=== PATIENT | male | born 1980 ===

== ENCOUNTER 2023-07-03 14:38 | Emergency (ER) | payer OTHER, SELFPAY ==
[2023-07-03 15:20] VITALS: BP 134/89; PULSE 118; RESP 18; TEMP 37.1; O2SAT 99; BMI 31.8
--- NOTE | 2023-07-03 15:20 | ED_ITS ---
HPI - General Adult General Chief complaint: Upper Respiratory Symptoms Stated complaint: Flu symptoms Time Seen by Provider: 07/03/23 16:20 Source: patient, RN notes reviewed, old records reviewed and patient safety attendant (syriac) Mode of arrival: ambulatory Limitations: language barrier History of Present Illness HPI narrative: 43 year old male presents to the ED today for evaluation of dry cough, congestion, subjective fevers, body aches, and diarrhea x3 days. He admits symptoms began after visiting his family at the hospital. His at home is ill with the same symptoms. He has been taking Tylenol at home. His last dose was last night. He did not receive his influenza vaccine this year. Denies sore throat, ear pain, sputum production, chest pain, SOB, wheezing, dyspnea, LE pain/swelling, hemoptysis, N/V/ abd pain. Denies recent travel or long car rides. 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 Related Data Home Medications Medication Instructions Recorded Confirmed aspirin 81 mg tablet,delayed 81 mg PO DAILY 11/03/21 release blood glucose control high and low #1 ea 11/03/21 solution (FreeStyle Control solution) blood sugar diagnostic (FreeStyle #10 ea 11/03/21 Lite Strips) blood-glucose meter (FreeStyle #1 ea 11/03/21 [place] Lite kit) glipizide 5 mg tablet 5 mg PO BID 11/03/21 insulin glargine 100 unit/mL (3 unit subcut 11/03/21 mL) subcutaneous pen (Lantus Solostar U-100 Insulin) lancets 28 gauge (FreeStyle #100 ea 11/03/21 Lancets) lisinopril 5 mg tablet 5 mg PO DAILY 11/03/21 metformin 1,000 mg tablet 1,000 mg PO BID 11/03/21 pen needle, diabetic 32 gauge x #50 ea 11/03/21 (BD Nubia 2nd Gen Pen Needle) simvastatin 40 mg tablet 40 mg PO BEDTIME 11/03/21 Previous Rx's Medication Instructions Recorded benzonatate 100 mg capsule 100 mg PO BID PRN cough #20 caps 07/03/23 oseltamivir 75 mg capsule (Tamiflu) 75 mg PO BID 5 days #10 caps 07/03/23 Allergies Allergy/AdvReac Type Severity Reaction Status Date / Time No Known Allergies Allergy Verified 07/03/23 15:20 Review of Systems Review of Systems: Constitutional: No fever, chills, fatigue, night sweats, weight changes ENT/Mouth: No ear pain, hearing loss, sinus pain, rhinorrhea, sore throat, +congestion Eyes: No eye pain, swelling, redness, vision changes, discharge Cardio: No chest pain, palpitations, [place], orthopnea, peripheral edema Pulm: No SOB, sputum, wheezing, dyspnea, hemoptysis, +cough GI: No nausea, vomiting, hematemesis, abdominal pain, constipation, hematochezia, melena, +diarrhea : No irregular bleeding, dysuria, frequency, urgency, hesitancy, hematuria, flank pain, urinary flow changes, urinary incontinence or retention MSK: No back pain, neck pain, joint pain, +myalgias Skin: No lesions, rashes Neuro: No weakness, numbness, paresthesias, LOC, dizziness, headache Psych: No anxiety/panic, depression, SI/HI, AH/VH All other systems reviewed and are negative. [facility] Past Medical History Attestation statement: The following information was validated with the patient. Source: old records reviewed and nursing notes reviewed Social History Social History Advance Directives: No Advance Directives Information Provided: No Physical Exam ED Vital Signs: Vital Signs - 24 hr 07/03/23 15:20 07/03/23 16:34 Temperature 98.8 F 98.8 F Pulse Rate 118 H 118 H Respiratory Rate 18 18 Blood Pressure 134/89 134/89 Pulse Oximetry 99 99 Oxygen Delivery Method Room Air Room Air BMI result Body Mass Index 31.8 Const General: cooperative, healthy appearing, comfortable and no acute distress Orientation/consciousness: patient oriented x3 Limitations: no limitations HENMT Other: + Posterior oropharynx without erythema or edema. no tonsillar swelling or exudates. no peritonsillar masses. uvula midline. controlling secretions and speaking in complete sentences. Head: Yes normal to inspection, Yes No palpable skull fracture present, Yes normocephalic and Yes atraumatic Ears: hearing grossly normal bilaterally, external ears normal, TM normal on the left, EAC's normal and mastoids normal General nose exam: Normal external nose present and No nasal discharge present Face and sinus: Yes normal facial exam and Yes sinuses nontender Eyes General: appearance normal, both eyes and all related structures Conjunctivae: conjunctivae normal Sclerae: sclerae normal Pupils: Equal, round and reactive pupils present Neck Neck: Yes normal visual inspection, Yes full ROM and Yes no lymphadenopathy Resp Effort & Inspection: normal respiratory effort and able to speak in complete sentences Auscultation: clear to auscultation bilaterally Cardio Rate: regular rate Rhythm: regular rhythm GI Inspection: Yes normal to inspection Palpation (GI): Soft to palpation, nontender and no splenomegaly Skin General skin exam: no rashes or lesions noted Neuro General: patient oriented x3 and gait normal Cranial nerves: Yes Equal, round and reactive pupils present Course Course Course Narrative: RME:?43 yo male here for eval of cough, congestion, fever, body aches, diarrhea x3 days after visiting his family at the hospital. his has the same sympt oms. taking tylenol at home, last dose last night. did not get flu vaccine this year. viral serology ordered. Full HPI, ROS and PE to be performed by the primary ED provider. Reevaluation(s) Reevaluation #1: 1632-- patient tested positive for influenza A. He tested negative for COVID and RSV. Discussed all workup results with patient. Tamiflu and Tessalon Perles sent to pharmacy after discussion with patient regarding treatment options. Patient has remained stable throughout ED visit today. Discussed worrisome signs and symptoms and when to return to the ED. All questions answered at this time. Patient is agreeable with disposition and stable for discharge. Medical Decision Making Medical Decision Making [facility] Narrative: 43 year old male presents to the ED today for evaluation of dry cough, congestion, fever, body aches, and diarrhea x3 days. Patient is tachycardic likely secondary to viral infection. Vitals otherwise wnl. Afebrile. He is nontoxic appearing and in NAD. B/l EACs and TMs wnl. Posterior oropharynx without erythema or edema. no tonsillar swelling or exudates. no peritonsillar masses. uvula midline. controlling secretions and speaking in complete sentences. RRR. Lungs CTA b/l. No wheezes, rhonchi or crackles. No rashes. Abd soft, ND/NT. Differential diagnosis includes viral syndrome, bronchitis. Low suspicion for pneumonia, strep throat, mono, [employer], retropharyngeal abscess, epiglottitis. Plan for viral serology and re-evaluation. Differential Diagnosis Differential Diagnoses: The differential diagnosis associated with the pres entation includes as above. Admission/Observation not indicated Lab Data MDM Lab Attestation statement: I reviewed the patient's lab results. as above. Labs: Lab Results 07/03/23 Range/Units 15:33 Influenza Type A (PCR) POSITIVE A (Negative) Influenza Type B (PCR) NEGATIVE (Negative) RSV RNA Qual (PCR) NEGATIVE (Negative) SARS-CoV-2 RNA (RT-PCR) NEGATIVE (Negative) Independent Historian Clinical information obtained from an independent historian. History obtained from or confirmed by: Spouse () External Record Review External record reviewed: Inpatient record Tests considered The following testing was considered but not selected: I considered obtaining CXR however lungs are CTA b/l and there is no increased effort of breathing. low suspicion for pneumonia. Prescription Management I considered prescription management with: Antiviral (tamiflu) and Other (tessalon perles) Social Determinants Patient?s care significantly limited by Social Determinants of Health including: Other Social Determinant of Health Discharge Plan Discharge Clinical Impression: Influenza A Patient Disposition: Home, Self-Care Instructions: Influenza (ED), Flu Shot (Vaccine) for Adults (ED) Additional Instructions: You tested positive for influenza A. You tested negative for COVID and RSV. Tamiflu is an antiviral that has been sent to your pharmacy. Take this as prescribed over the next 5 days. Tessalon Perles have been sent to your pharmacy for cough. Alter ibuprofen and Tylenol for fevers and body aches. You may also purchase [id number] Chloraseptic spray to spray at the back of the throat for throat pain. Follow-up with your PCP. If symptoms persist or worsen please return to the emergency department. The case of an emergency call 911. Prescriptions: New oseltamivir [Tamiflu] 75 mg capsule 75 mg PO BID 5 Days Qty: 10 0RF benzonatate 100 mg capsule 100 mg PO BID PRN (Reason: cough) Qty: 20 0RF No Action metformin 1,000 mg tablet 1,000 mg PO BID lisinopril 5 mg tablet 5 mg PO DAILY simvastatin 40 mg tablet 40 mg PO BEDTIME glipizide 5 mg tablet 5 mg PO BID (DME) blood-glucose meter [[employer] [place] Lite] Kit See Rx Instructions .ROUTE .MEDSUPPLY Qty: 1 Rx Instructions: As directed (DME) pen needle, diabetic [BD Nubia 2nd Gen Pen Needle] 32 gauge x /32 needle See Rx Instructions .ROUTE .MEDSUPPLY Qty: 50 Rx Instructions: As directed (DME) lancets [FreeStyle Lancets] 28 gauge misc See Rx Instructions topical BID Qty: 100 Rx Instructions: As directed (DME) FreeStyle Control Solution See Rx Instructions .ROUTE .MEDSUPPLY Qty: 1 Rx Instructions: As directed (DME) FreeStyle Lite Strips Strip See Rx Instructions .ROUTE .MEDSUPPLY Qty: 10 Rx Instructions: As directed insulin glargine [Lantus Solostar U-100 Insulin] 100 unit/mL (3 mL) insulin pen subcut aspirin 81 mg tablet,delayed release (DR/EC) 81 mg PO DAILY Interventions: ED Discharge Assessment Last Done: 07/03/23 16:34 Discharge Date/Time: 07/03/23 16:34 Print Language: Malaysian
[2023-07-03 16:16] LABS: Influenza A PCR POSITIVE (Negative); Influenza B PCR NEGATIVE (Negative); Resp Syncy Virus RNA Qual PCR NEGATIVE (Negative); SARS COV2 PCR INHOUSE NEGATIVE (Negative)
[2023-07-03 16:34] VITALS: BP 134/89; PULSE 118; RESP 18; TEMP 37.1; O2SAT 99
== END 2023-07-03 16:34 | disposition home or self-care (01) ==
PROVIDERS: Physician Assistant Medical; Emergency Provider Emergency Medicine; PCP Internal Medicine
DX: J10.1 Influenza due to other identified influenza virus with other respiratory manifestations (principal); Z11.52 Encounter for screening for COVID-19; Z20.828 Contact with and (suspected) exposure to other viral communicable diseases
CPT/HCPCS: 0241U; 99282; 99283

== ENCOUNTER 2024-11-12 14:13 | Emergency (ER) | payer OTHER, SELFPAY ==
--- NOTE | ~2024-11-12 | XR_ITS ---
EXAMINATION: XR CHEST 2 VIEWS HISTORY: SOB COMPARISON: There are no prior studies available for comparison. FINDINGS: PA and lateral views of the chest are submitted. The lungs are expanded and clear. There is no pleural effusion, pneumothorax, or pulmonary vascular congestion. The heart is normal in size. The bones are intact. XR/XR chest 2V IMPRESSION: Clear lungs. Electronically signed by: Daniel Shoemaker MD 11/12/2024 02:59 PM EDT
[2024-11-12 14:42] VITALS: BP 111/78; PULSE 122; RESP 18; TEMP 37.7; O2SAT 97; BMI 30.1
--- NOTE | 2024-11-12 14:45 | ED.GENADULT ---
HPI - General Adult General Chief complaint: Dyspnea Stated complaint: sob, fever Time Seen by Provider: 11/12/24 16:52 Source: patient and adoption manager Mode of arrival: ambulatory Limitations: no limitations History of Present Illness ED Provider: DR. Severino HPI narrative: A 44-year-old male with history of diabetes presented for evaluation of 2 days of generalized body ache, sore throat, subjective fever, nausea, and nonbloody watery diarrhea. [facility] possible exposure to sick people, no recent travel. No chest pain. Complains of mild left-sided abdominal pain describe it as cramps that is more before moving his bowel. Related Data Home Medications ?Medication ?Instructions ?Recorded ?Confirmed aspirin 81 mg tablet,delayed 81 mg PO DAILY 11/03/21 release blood glucose control high and low #1 ea 11/03/21 solution (FreeStyle Control solution) blood sugar diagnostic (FreeStyle #10 ea 11/03/21 Lite Strips) blood-glucose meter (FreeStyle #1 ea 11/03/21 [place] Lite kit) glipizide 5 mg tablet 5 mg PO BID 11/03/21 insulin glargine 100 unit/mL (3 unit subcut 11/03/21 mL) subcutaneous pen (Lantus Solostar U-100 Insulin) lancets 28 gauge (FreeStyle #100 ea 11/03/21 Lancets) lisinopril 5 mg tablet 5 mg PO DAILY 11/03/21 metformin 1,000 mg tablet 1,000 mg PO BID 11/03/21 pen needle, diabetic 32 gauge x #50 ea 11/03/21 (BD Nubia 2nd Gen Pen Needle) simvastatin 40 mg tablet 40 mg PO BEDTIME 11/03/21 Previous Rx's ?Medication ?Instructions ?Recorded benzonatate 100 mg capsule 100 mg PO BID PRN cough #20 caps 07/03/23 oseltamivir 75 mg capsule (Tamiflu) 75 mg PO BID 5 days #10 caps 07/03/23 albuterol sulfate 90 mcg/actuation 1 inh inhalation QID PRN shortness 11/12/24 aerosol inhaler (Ventolin HFA) of breath or wheezing #6.7 grams nirmatrelvir 300 mg (150 mg See Rx Instructions PO .COMPLEX 11/12/24 x2)-ritonavir 100 mg tablet,dose #30 ea pack (Paxlovid) Allergies Allergy/AdvReac Type Severity Reaction Status Date / Time No Known Allergies Allergy Verified 11/12/24 14:47 Review of Systems Review of Systems: All other systems are reviewed and are negative Constitutional: Reports as per HPI and Reports no additional constitutional complaints Eyes: Reports as per HPI and Reports no additional eye complaints Reports system reviewed and no additional complaints, except as documented Cardiovascular: Reports as per HPI and Reports no additional cardiovascular complaints Respiratory: Reports as per HPI and Reports no additional respiratory complaints Gastrointestinal: Reports as per HPI and Reports no additional gastrointestinal complaints Genitourinary: Reports no additional female genitourinary complaints Musculoskeletal: Reports no additional musculoskeletal complaints Skin/Breast: Reports system reviewed and no additional complaints, except as docu Psychiatric: Reports no additional psychiatric complaints Endocrine: Reports no additional endocrine complaints Hematologic/Lymphatic: Reports no additional hematologic/lymphatic complaints Allergic/Immunologic: Reports no additional allergic/immunologic complaints Reports system reviewed and no additional complaints, except as documented and Reports Abnormal speech present [facility] Social History Social History Advance Directives: No Advance Directives Information Provided: No Physical Exam ED Vital Signs: Vital Signs - 24 hr 11/12/24 14:42 11/12/24 17:20 11/12/24 17:42 Temperature 99.9 F 100.0 F 100.0 F Pulse Rate 122 H 115 H 115 H Respiratory Rate 18 16 16 Blood Pressure 111/78 128/78 128/78 Pulse Oximetry 97 97 97 Oxygen Delivery Method Room Air Room Air Room Air BMI result Body Mass Index 30.1 Vital signs have been reviewed and appear to be correct. Blood pressure elevated. Heart rate normal. Respiratory rate normal. Temperature normal. Oxygen saturation normal. Appearance: Alert. Oriented X3. No acute distress. Head: Normal external exam. Normocephalic. Atraumatic. No Bee signs noted. No raccoon eyes noted Eyes: PERRLA. EOMI. Conjunctiva and sclera normal. Eyelids normal. ENT: TM's Normal. Pharynx normal. Uvula midline. Moist mucous membranes. No trismus noted. No drooling noted. No muffled voice noted. Neck: Normal inspection. Neck supple. FROM. No adenopathy. Thyroid Normal. No meningeal signs. No neck mass noted. CVS: Normal heart rate and rhythm. Heart sound normal. No murmurs noted. Pulses normal throughout. Respiratory: No respiratory distress. Painless inspiration. Breath sounds normal. No wheezes/rales/rhonchi noted. Chest nontender. No accessory muscle usage noted or decreased air movement noted. Abdomen: Soft and nontender. Bowel sounds normal in all 4 quadrants. No distention noted. No organomegaly noted. No visible injury noted. Back: No CVA tenderness. Full range of motion noted. Skin: Skin warm and dry. Normal skin color. Normal skin turgor. No rashes/lesions/lacerations noted. Extremities: No lower extremity edema. Extremities exhibit normal range of motion. Extremities nontender. Neuro: Oriented X 3. Cranial nerve exam: II-XII are grossly intact No motor deficit. No sensory deficit. Reflexes normal. Course Course Course Narrative: RME performed by Makayla Connolly PA-C. Patient is a 44 year old assigned male at presenting to the emergency department with a fever, chills, cough, and feeling generally unwell. Detailed physical exam and review of systems are deferred to the phys assistant. Labs, imaging, and swabs ordered. Patient placed back in the waiting room pending room availability and results. Reevaluation(s) Reevaluation #1: Two days of symptoms, positive for COVID, negative chest x-ray, unremarkable labs, symptoms started 2 days ago patient may benefit from Paxlovid, albuterol for PRN wheezing. Complain of abdominal pain, abdominal exam revealed no or rebound tenderness likely secondary to a viral gastroenteritis. Time: 17:08 Medical Decision Making Differential Diagnosis Differential Diagnoses: The differential diagnosis associated with the presentation includes (Pneumonia, pneumothorax, pleural effusion, dehydration, electrolyte derangement, influenza, COVID-19 infection.) Admission/Observation Consideration of admission/observation: Escalation of care including admission/observation considered Lab Data MDM Lab Attestation statement: I reviewed the patient's lab results. 11/12/24 15:05 11/12/24 15:05 Labs: Lab Results 11/12/24 Range/Units 15:05 WBC 10.3 (4.8-10.8) X10*3/uL RBC 4.89 (4.60-5.80) X10*6/uL Hgb 13.4 L (14.0-18.0) g/dl Hct 39.4 L (42.0-52.0) % MCV 80.6 (80.0-98.0) fL MCH 27.4 (27.0-33.0) pg MCHC 34.0 (31.0-36.0) g/dl RDW 13.0 (11.0-16.0) % Plt Count 314 (160-400) X10*3/uL MPV 10.7 (9.4-12.4) fL Immature Gran % (Auto) 0.5 H (0.0-0.4) % Neut % (Auto) 80.4 H (45-73) % Lymph % (Auto) 9.0 L (20-40) % Marshall % (Auto) 9.0 (2-11) % Eos % (Auto) 0.6 (0-4) % Baso % (Auto) 0.5 (0-2) % Lymph # (Auto) 0.9 L (1.2-4.9) X10*3/uL [place] # (Auto) 0.9 (0.1-1.2) X10*3/uL Eos # (Auto) 0.1 (0.0-0.4) X10*3/uL Baso # (Auto) 0.1 (0.0-0.2) X10*3/uL Abs Immat Gran (auto) 0.05 H (0.00-0.03) X10*3/uL Absolute Neuts (auto) 8.3 (2.0-8.3) x10*3/uL Absolute Nucleated RBC 0.000 (0.0-0.012) X10*3/uL Nucleated RBC % (auto) 0.0 (0.0-0.2) /100WBC Sodium 139 (135-145) mmol/L Potassium 3.8 (3.3-5.1) mmol/L Chloride 104 (96-108) mmol/L Carbon Dioxide 26 (22-29) mmol/L Anion Gap 13 (12-20) BUN 13 (9-16) mg/dL Creatinine 0.87 (0.5-1.4) mg/dL Estim Creat Clear Calc 136.9 Estimated GFR > 60 Random Glucose 170 H (60-115) mg/dL Calcium 9.6 (8.4-10.2) mg/dL Magnesium 1.6 (1.6-2.6) mg/dL Total Bilirubin 0.6 (0.0-1.0) mg/dL AST 29 (5-37) U/L ALT 38 (0-40) U/L Alkaline Phosphatase 115 (39-117) U/L Total Protein 8.3 H (6.5-8.0) g/dL Albumin 4.8 (3.5-5.0) g/dL Influenza Type A (PCR) NEGATIVE (Negative) Influenza Type B (PCR) NEGATIVE (Negative) RSV RNA Qual (PCR) NEGATIVE (Negative) SARS-CoV-2 RNA (RT-PCR) POSITIVE A (Negative) Independent Interpretation I performed an independent interpretation of an: Plain X-Ray (No acute intrathoracic pathology.) Radiology Impression Discussion of test interpretation with radiology: I have reviewed the radiologist's reading. Discharge Plan Discharge Clinical Impression: COVID-19 virus infection, Gastroenteritis Patient Disposition: Home, Self-Care Instructions: COVID-19 (Coronavirus Disease 2019) (ED) Additional Instructions: Keep social distance between you on others, wear a face mask at all times, frequent hands wash, self quarantine until your symptoms is better, return if symptoms is worsening. Prescriptions: New Paxlovid 300 mg (150 mg x 2)-100 mg tablets,dose pack See Rx Instructions .ROUTE .COMPLEX Qty: 30 0RF Rx Instructions: take TWO 150 mg tablets of nirmatrelvir with ONE 100 mg tablet of ritonavir twice daily for 5 days albuterol sulfate [Ventolin HFA] 90 mcg/actuation HFA aerosol inhaler 1 inh inhalation QID PRN (Reason: shortness of breath or wheezing) Qty: 6.7 0RF No Action oseltamivir [Tamiflu] 75 mg capsule 75 mg PO BID 5 Days Qty: 10 0RF benzonatate 100 mg capsule 100 mg PO BID PRN (Reason: cough) Qty: 20 0RF metformin 1,000 mg tablet 1,000 mg PO BID lisinopril 5 mg tablet 5 mg PO DAILY simvastatin 40 mg tablet 40 mg PO BEDTIME glipizide 5 mg tablet 5 mg PO BID (DME) blood-glucose meter [[employer] [place] Lite] Kit See Rx Instructions .ROUTE .MEDSUPPLY Qty: 1 Rx Instructions: As directed (DME) pen needle, diabetic [BD Nubia 2nd Gen Pen Needle] 32 gauge x 5/32 needle See Rx Instructions .ROUTE .MEDSUPPLY Qty: 50 Rx Instructions: As directed (DME) lancets [FreeStyle Lancets] 28 gauge misc See Rx Instructions topical BID Qty: 100 Rx Instructions: As directed (DME) FreeStyle Control Solution See Rx Instructions .ROUTE .MEDSUPPLY Qty: 1 Rx Instructions: As directed (DME) FreeStyle Lite Strips Strip See Rx Instructions .ROUTE .MEDSUPPLY Qty: 10 Rx Instructions: As directed insulin glargine [Lantus Solostar U-100 Insulin] 100 unit/mL (3 mL) insulin pen subcut aspirin 81 mg tablet,delayed release (DR/EC) 81 mg PO DAILY Referrals: Ilene Clifford MD [Primary Care Provider, Internal Medicine] Interventions: ED Discharge Assessment Last Done: 11/12/24 17:42 Discharge Date/Time: 11/12/24 17:42 Print Language: Syriac
[2024-11-12 15:09] LABS: MANUAL DIFF FLAG NO
[2024-11-12 15:13] LABS: Hematocrit 39.4 % (42.0-52.0); Hemoglobin 13.4 g/dl (14.0-18.0); Imm Gran Abs Auto 0.05 X10*3/uL (0.00-0.03); Imm Gran Pct Auto 0.5 % (0.0-0.4); Lymphocytes Absolute Auto 0.9 X10*3/uL (1.2-4.9); Mean Corpuscular HGB Conc 34.0 g/dl (31.0-36.0); Mean Corpuscular Hemoglobin 27.4 pg (27.0-33.0); Mean Corpuscular Volume 80.6 fL (80.0-98.0); NRBC Abs Auto 0.000 X10*3/uL (0.0-0.012); NRBC Pct Auto 0.0 /100WBC (0.0-0.2); Platelet Count 314 X10*3/uL (160-400); Red Blood Count 4.89 X10*6/uL (4.60-5.80); White Blood Count 10.3 X10*3/uL (4.8-10.8)
[2024-11-12 15:30] LABS: Alanine Aminotransferase 38 U/L (0-40); Albumin Level 4.8 g/dL (3.5-5.0); Alkaline Phosphatase 115 U/L (39-117); Anion Gap 13 (12-20); Aspartate Amino Transferase 29 U/L (5-37); Blood Urea Nitrogen 13 mg/dL (9-16); Calcium 9.6 mg/dL (8.4-10.2); Carbon Dioxide 26 mmol/L (22-29); Chloride 104 mmol/L (96-108); Creatinine Clr Calc Pharmacy 136.9; Estimated Glomerular Filt Rate > 60; Magnesium 1.6 mg/dL (1.6-2.6); Potassium 3.8 mmol/L (3.3-5.1); Sodium 139 mmol/L (135-145); Total Protein 8.3 g/dL (6.5-8.0)
[2024-11-12 15:49] LABS: Resp Syncy Virus RNA Qual PCR NEGATIVE (Negative); SARS COV2 PCR INHOUSE POSITIVE (Negative)
--- OUTSIDE RECORDS SUMMARY | 2024-11-12 17:14 | XMS_ITS | Clinical Summary ---
Author Organization [facility] [address] [place] [address] [place] [phone] Phone Care Team Providers Care Trimmer Loader Name Role Phone Ilene Stearns MD Primary Care Prov ider Allergies No known active allergies Medications blood glucose control high,low (FreeStyle Control) solution Use with glucose meter 3 Active FREESTYLE LANCETS MISC Check sugars twice daily 3 Active glipiZIDE (GLUCOTROL) 5 mg tablet TAKE 1 TABLET BY MOUTH TWICE A DAY BEFORE MEALS 4 Active blood sugar diagnostic (FreeStyle Lite Strips) test strip 1 Strip by In Vitro route 2 times daily. 3 Active lisinopriL (PRINIVIL,ZESTRI L) 5 mg tablet Take 1 Tablet by mouth daily. 4 Active fish,bora,flax oils-om3,6,9no1 ([place] 3-6-9) 1,200 mg capsule Take 2 Capsules by mouth daily. 4 Active simvastatin (ZOCOR) 40 mg tablet TAKE 1 TABLET BY MOUTH AT BEDTIME 90 tablet 1 5 Active clotrimazole (LOTRIMIN) 1 % cream Apply topically 2 (two) times a day. 30 g 1 5 Active pen needle, diabetic 32 gauge x needleIndication s:Type 2 diabetes mellitus with other specified complication, with long-term current use of insulin ([facility] V24, CMS/HCC V28) Use one daily with insulin. 100 each 5 Active metFORMIN XR (GLUCOPHAGE-XR) 500 mg 24 hr tablet Take 2 tablets (1,000 mg total) by mouth 2 (two) times a day with meals. 360 tablet 1 5 Active insulin glargine (Lantus Solostar U-100 Insulin) 100 unit/mL (3 mL) injection pen INJECT 44-46 UNITS INTO THE SKIN AT BEDTIME. 45 mL 2 5 Active dulaglutide (Trulicity) 1.5 mg/0.5 mL pen injector injectionIndicat ions:Type 2 diabetes mellitus with diabetic polyneuropathy, with long-term current use of insulin ([facility] V24, [facility] V28) Inject 1.5 mg SC every 7 days 6 mL 1 5 Active blood-glucose sensor (FreeStyle [place] 3 Plus Sensor) deviceIndication s:Type 2 diabetes mellitus with diabetic polyneuropathy, with long-term current use of insulin ([facility] V24, [facility] V28) To use one sensor every 15 days E11.9 6 each 2 5 Active omeprazole (PriLOSEC) [address] capsuleIndicatio ns:Gastroesophag eal reflux disease without esophagitis Take 1 capsule (40 mg total) by mouth 1 (one) time each day. DO NOT CRUSH OR CHEW 90 each 3 5 10/11/19 26 Active diclofenac (VOLTAREN) 1 % topical gel Apply 4 g topically 4 (four) times a day if needed (rib pain). 100 g 5 Active Active Problems Problem Noted Date Diagnosed Date Type 2 diabetes mellitus wit h diabetic polyneuropathy, without long-term current use of insulin ([facility] V24, [facility] V28) 03/02/2024 Assessment & Plan (11/05/2024 8:29 AM EDT): Uncontrolled, follows with endo. A1C: 10. Next appt Nov 13 Orders: Ambulatory referral to Podiatry; Future HTN (hypertension) 03/02/2024 Hyperlipidemia 03/02/2024 Tubular adenoma of colon 07/06/2023 Overview (03/02/2024): 2022: 20 mm polyp of the sigmoid colon. Per gastroenterology his children will need colonoscopy at age 30. Polyneuropathy 11/24/2020 Diabetic polyneuropathy asso ciated with type 2 diabetes mellitus ([facility] V24, [facility] V28) 05/26/2020 Other insomnia 05/26/2020 Lumbago 08/06/2015 Right carpal tunnel syndrome 08/06/2015 Encounters Date Type Department Care Team Description 11/05/2024 8:00 AM EDT Office Visit Adult Medicine [address] [phone] Ilene Villalobos MD Adult general medical examination (Primary Dx); Type 2 diabetes mellitus with diabetic polyneuropathy, without long-term current use of insulin ([facility] V24, [facility] V28); Need for hepatitis C screening test; Encounter for screening for HIV; Need for vaccination against Streptococcus pneumoniae 09/12/2024 Telephone Endocrinology [address] [phone] Brenda Ugarte PA 08/22/[address] [phone] Viviana Handy PA PRIOR AUTHORIZATION 08/21/2024 2:20 PM EDT Office Visit [address] [phone] Viviana Handy PA Type 2 diabetes mellitus with diabetic polyneuropathy, with long-term current use of insulin ([facility] V24, [facility] V28) (Primary Dx); Primary hypertension; Mixed hyperlipidemia from Last 3 Months Immunizations Name Administration Dates Next Due Influenza Quadravalent, MDCK , 0.5ml, preservative free (Flucelvax) 6mo and older 03/27/2021,06/15/2018 Influenza trivalent, with pr eservative (Fluzone; Afluria) 6mo and older 03/18/2016 Pneumococcal conjugate 13 va lent (Prevnar 13, PCV13) 2mo and older 03/18/2016 Pneumococcal conjugate 20 va lent (Prevnar 20, PCV 20) 2mo and older 11/05/2024 Tdap Tetanus diptheria acell ular pertussis (Boostrix; Adacel) 7yo and older 06/15/2018 Surgical History Surgery Date Site/Laterality Comments OTHER SURGICAL HISTORY PROCEDURE: DENIES PREVIOUS SURGERY Medical History Medical History Date Comments DM type 2 (diabetes mellitus , type 2) ([facility] V24, [facility]/HCC V28) DX:DM type 2 (diabetes preethi itus, type 2) ([facility]) HTN (hypertension) DX:HTN (hyper tension) Hyperlipidemia DX:Hyperlipidemi a Right carpal tunnel syndrome 08/06/2015 DX: Right carpal tunnel syndrome Lumbago 08/06/2015 DX:Lumbago Depression 08/31/2016 DX:Depression Anxiety 08/31/2016 DX:Anxiety; COMM ENT: denies anxiety and depression 11/24/20, took medications in past from psychiatrist per patient, discontinued meds Polyneuropathy DX:Polyneuropath y Family History Medical History Relation Name Comments Diabetes Brother Other: Diabetes. at age 42 Father Depression Mother Diabetes Mother Diabetes Sister Relation Name Status Comments Brother Father Mother Sister Social History Tobacco Use Types Packs/Day Years Used Date Smoking Tobacco: Never Smokeless Tobacco: Never Tobacco Cessation:Counseling Given: Not Answered Alcohol Use Standard Drinks/Week Comments No 0 (1 standard drink = 0.6 oz pur e alcohol) Housing Instability Answer Date Recorde d Are you worried that in the next 2 months you may not have stable housing? No 11/05/2024 Food Access & Nutrition Answer Date Rec orded Do you have access to a vari ety of food including fruits and vegetables? Yes 11/05/2024 Health Literacy Answer Date Recorded How often do you need to hav e someone help you when you read instructions, pamphlets, or other written material from your doctor or pharmacy? Never 11/05/2024 Caregiver: How often do you need to have someone help you when you read instructions, pamphlets, or other written material from your doctor or pharmacy? Not on file 11/05/2024 Financial Risk Answer Date Recorded How hard is it for you to pa y for the very basics like food, housing, medical care, and air conditioning / heating? Not very hard 11/05/2024 Transportation Answer Date Recorded Has the lack of transportati on kept you from meetings, work, or from getting things needed for daily living? Not on file 11/05/2024 Has the lack of transportati on kept you from medical appointments or from getting medications? No 11/05/2024 Social Isolation Answer Date Recorded How often do you feel lonely or isolated from th ose around you? Never 11/05/2024 Food Risk Answer Date Recorded Within the past 12 months we worried whether our food would run out before we got money to buy more. Never true 11/05/2024 Within the past 12 months th e food we bought just didn't last and we didn't have money to get more. Never true 11/05/2024 Dependent Care Answer Date Recorded Do you need help finding or paying for care for your loved ones. For example, child development assistant or elderly care for an older adult? No 11/05/2024 Education Answer Date Recorded Do you think completing more education or training, like finishing a GED, going to college, or learning a trade, would be helpful for you? N/A 11/05/2024 Employment and Income Answer Date Recor ded During the last four weeks, have you been actively looking for work? No 11/05/2024 Sex and Gender Information Value Date Recorded Sex Assigned at Not on file Legal Sex Male 7:33 PM EST Gender Identity Not on file Sexual Orientation Not on file Obstetrics History Last Filed Vital Signs Vital Sign Reading Time Taken Comments Blood Pressure 121/81 11/05/2024 7:58 AM EDT Pulse 81 11/05/2024 7:58 AM EDT Temperature 35.9 C (96.6 F) 11/05/2024 7:58 AM EDT Respiratory Rate 16 11/05/2024 7:58 AM EDT Oxygen Saturation 98% 08/21/2024 2:48 PM EDT Inhaled Oxygen Concentration - - Weight 104 kg (229 lb 12.8 oz) 11/05/2024 7:58 A M EDT Height 185.4 cm (6' 1 ) 11/05/2024 7:58 AM EDT Body Mass Index 30.32 11/05/2024 7:58 AM EDT Plan of Treatment Upcoming Encounters Date Type Department Care Team (Late st Contact Info) Description 03/08/2025 9:30 AM EST Office Visit Adult Medicine [facility] [address] [phone] Ilene Stearns MD [address] [place] [phone] Health Maintenance Due Date Last Done Comments HIV Screening 03/13/2022 Hepatitis C Screening 03/13/2022 COVID-19 Vaccine ( season) 2023 09/11/2020, 08/21/2020 Diabetes: Annual Retina Eye Exam 09/03/2024 09/04/2023 Diabetes: Annual Foot Exam 11/03/2024 11/04/2023 Influenza Vaccine (#1) 2024 , 06/15/2018, 03/18/2016 Diabetes: Blood Sugar Control Test (HGBA1C) 05/04/2025 11/01/2024, 05/31/2024, 11/08/2023, Additional history exists Diabetes: Annual Urine Albumin-Creatinine Ratio (uACR) 05/31/2025 05/31/2024, 06/23/2023 Diabetes: Annual GFR (Glomerular Filtration Rate) 05/31/2025 05/31/2024, 11/08/2023, 11/08/2023 Hypertension/CHF/CAD Annual BMP Blood Test 05/31/2025 05/31/2024, 11/08/2023, 11/08/2023 Social Influencers of Health Screening 11/05/2025 11/05/2024 Colorectal Cancer Screening: Colonoscopy 07/31/2026 07/29/2023 DTaP,Tdap,and Td Vaccines (2 - Td or Tdap) 06/15/2028 06/15/2018 Cholesterol Screening (Lipid Panel) 05/31/2029 05/31/2024, 11/08/2023, 06/23/2023 Depression Screening Completed 11/05/2024, 06/22/19 Pneumococcal Vaccine: Pediatrics (0 to 5 Years) and At-Risk Patients (6 to 49 Years) Completed 11/05/2024, 03/18/2016 HIB Vaccines Aged Out No longer eligi ble based on patient's age to complete this topic HPV Vaccines Aged Out No longer eligi ble based on patient's age to complete this topic Hepatitis A Vaccines Aged Out No long er eligible based on patient's age to complete this topic Hepatitis B Vaccines Discontinued IPV Vaccines Aged Out No longer eligi ble based on patient's age to complete this topic MMR Vaccines Aged Out No longer eligi ble based on patient's age to complete this topic Meningococcal ACWY Vaccine Aged Out N o longer eligible based on patient's age to complete this topic Meningococcal B Vaccine Aged Out No l onger eligible based on patient's age to complete this topic RSV Immunization Patients Under 20 months Aged Out No longer eligible based on patient's age to complete this topic Varicella Vaccines Aged Out No longer eligible based on patient's age to complete this topic Procedures Procedure Name Priority Date/Time Associated Diagnosis Comments HEMOGLOBIN A1C Routine 11/01/2024 10:00 AM EDT Type 2 diabetes mellitus with diabetic polyneuropathy, with long-term current use of insulin ([facility] V24, [facility] V28) POC GLUCOSE Routine 08/21/2024 3:40 PM EDT Type 2 diabetes mellitus with diabetic polyneuropathy, with long-term current use of insulin ([facility] V24, [facility] V28) MICROALBUMIN CREATININE URINE RATIO Routine 05/31/2024 1:17 PM EST Type 2 diabetes mellitus with diabetic polyneuropathy, with long-term current use of insulin ([facility] V24, [facility] V28) COMPREHENSIVE METABOLIC PANEL Routine 05/31/2024 1:17 PM EST Type 2 diabetes mellitus with diabetic polyneuropathy, with long-term current use of insulin ([facility] V24, CMS/HCC V28) LIPID PANEL WITH REFLEX TO DIRECT LDL Routine 05/31/2024 1:17 PM EST Type 2 diabetes mellitus with diabetic polyneuropathy, with long-term current use of insulin ([facility] V24, [facility] V28) DIABETES FOOT EXAM Routine 11/04/2023 DIABETES EYE EXAM Routine 09/04/2023 COLONOSCOPY Routine 07/29/2023 DEPRESSION SCREENING Routine 06/22/2023 from Last 3 Months or Most Recently Relevant to Health Maintenance Results * (ABNORMAL) Hemoglobin A1c (11/01/2024 10:00 AM EDT) Hemoglobin A1C 10.1(H) <6.5 % LAB CHEMISTRY METHOD 11/01/2024 1:[address] [facility] Mean Bld Glu Estim. 243 mg/dL LAB CHEMISTRY METHOD 11/01/2024 1:[address] [facility] Blood Venous blood specimen / Unknown Venipuncture / Unknown 11/01/2024 10:00 AM EDT 11/01/2024 10:00 AM EDT us Viviana HINTON LAB BLOOD ORDERABLES Final Resul t [facility] [address] [place] [address], [place] [phone] * POC glucose manually resulted (08/21/2024 3:40 PM EDT) [facility] Glucose POC 187 mg/dL Comment:non fasting Blood Capillary blood specimen / Unknown 08/21/2024 3:40 PM EDT us Viviana HINTON POINT OF CARE TEST ENTER/EDIT OR DERABLES Final Result * (ABNORMAL) Lipid panel with reflex to direct LDL (05/31/2024 1:17 PM EST) [facility] Cholesterol 164 0 - 200 mg/dL LAB CHEMISTRY METHOD 05/31/2024 5:[address] [facility] Triglycerides 185(H) 0 - 150 mg/dL LAB CHEMISTRY METHOD 05/31/2024 5:[address] [facility] HDL 44 >=40 mg/dL LAB CHEMISTRY METHOD 05/31/2024 5:[address] [facility] LDL Calculated 83 0 - 100 mg/dL LAB CHEMISTRY METHOD 05/31/2024 5:[address] [facility] VLDL Cholesterol [place] 37 mg/dL LAB CHEMISTRY METHOD 05/31/2024 5:[address] [facility] Non HDL Chol. (LDL+VLDL) 120 <145 mg/dL LAB CHEMISTRY METHOD 05/31/2024 5:[address] [facility] Chol/HDL Ratio 3.7 0.0 - 4.4 LAB CHEMISTRY METHOD 05/31/2024 5:23 PM [facility] Blood Venous blood specimen / Unknown Venipuncture / Unknown 05/31/2024 1:17 PM EST 05/31/2024 1:17 PM EST us María Elena Cary PA LAB BLOOD ORDERABLES Final Resul t [facility] [address] [place] [address], [place] [phone] * (ABNORMAL) Microalbumin creatinine urine ratio (05/31/2024 1:17 PM EST) Creatinine, Urine 136.0 mg/dL LAB CHEMISTRY METHOD 05/31/2024 5:45 PM [facility] Microalb, Ur 37.8(H) 0.0 - 29.0 mg/L LAB CHEMISTRY METHOD 05/31/2024 5:45 PM [facility] Microalb/Crea t Ratio 28 <30 mg/g creat LAB CHEMISTRY METHOD 05/31/2024 5:[address] [facility] Urine Urine specimen obtained by clean catch procedure / Unknown Non-blood Collection / Unknown 05/31/2024 1:17 PM EST 05/31/2024 1:17 PM EST us María Elena Cary PA LAB URINE ORDERABLES Final Resul t [facility] [address] [place] [address], * (ABNORMAL) Comprehensive metabolic panel (05/31/2024 1:17 PM EST) Sodium 137 133 - 145 mmol/L LAB CHEMISTRY METHOD 05/31/2024 5:21 PM [facility] Potassium 4.7 3.5 - 5.5 mmol/L LAB CHEMISTRY METHOD 05/31/2024 5:21 PM [facility] Chloride 102 96 - 110 mmol/L LAB CHEMISTRY METHOD 05/31/2024 5:21 PM [facility] CO2 27 21 - 32 mmol/L LAB CHEMISTRY METHOD 05/31/2024 5:21 PM [facility] Anion Gap 8 3 - 11 LAB CHEMISTRY METHOD 05/31/2024 5:21 PM [facility] Glucose 195(H) 70 - 100 mg/dL LAB CHEMISTRY METHOD 05/31/2024 5:21 PM [facility] BUN 11 5 - 25 mg/dL LAB CHEMISTRY METHOD 05/31/2024 5:21 PM [facility] Creatinine 0.82 0.70 - 1.30 mg/dL LAB CHEMISTRY METHOD 05/31/2024 5:21 PM [facility] eGFR 111 >=60 mL/min/1. 73m2 LAB CHEMISTRY METHOD 05/31/2024 5:21 PM [facility] Comment:Calculation based on the Chronic Kidney Disease Epidemiology Collaboration (CKD-EPI) equation refit without adjustment for race. BUN/Creatinine Ratio 13.4 LAB CHEMISTRY METHOD 05/31/2024 5:21 PM [facility] Calcium 10.1 8.5 - 10.5 mg/dL LAB CHEMISTRY METHOD 05/31/2024 5:21 PM [facility] AST (SGOT) 12 10 - 42 unit/L LAB CHEMISTRY METHOD 05/31/2024 5:21 PM [facility] ALT (SGPT) 30 10 - 60 unit/L LAB CHEMISTRY METHOD 05/31/2024 5:21 PM [facility] Alkaline Phosphatase 97 42 - 121 unit/L LAB CHEMISTRY METHOD 05/31/2024 5:21 PM [facility] Total Protein 8.0 6.0 - 8.0 g/dL LAB CHEMISTRY METHOD 05/31/2024 5:21 PM [facility] Albumin 4.1 3.2 - 5.0 g/dL LAB CHEMISTRY METHOD 05/31/2024 5:21 PM [facility] Total Bilirubin 0.6 0.0 - 1.4 mg/dL LAB CHEMISTRY METHOD 05/31/2024 5:21 PM [facility] Blood Venous blood specimen / Unknown Venipuncture / Unknown 05/31/2024 1:17 PM EST 05/31/2024 1:17 PM EST María Elena HINTON LAB BLOOD ORDERABLES Final Resul t [facility] [address] [place] [address], * Diabetes Foot Exam (11/04/2023) [facility] Diabetes: Annual Foot Exam Abstracted [facility] Provider HEALTH MAINTENANCE Final Result * Diabetes Eye Exam (09/04/2023) [facility] Diabetes: Annual Retina Eye Exam Abstracted [facility] Provider HEALTH MAINTENANCE Final Result * Colonoscopy (07/29/2023) [facility] Colonoscopy No Interpretation , Abstracted Anatomical Region Laterality Modality Other [facility] Provider HEALTH MAINTENANCE Final Result * Depression Screening (06/22/2023) Depression Screening Abstracted us Historical Provider HEALTH MAINTENANCE Final Result from Last 3 Months or Most Recently Relevant to Health Maintenance Insurance [facility] [place] [phone] Care Teams Trimmer Loader Relationship Specialty Start Date End Date Ilene Stearns MD [address] [place] [phone] PCP - General Internal Medicine 11/19/21
[2024-11-12 17:20] VITALS: BP 128/78; PULSE 115; RESP 16; TEMP 37.8; O2SAT 97
[2024-11-12 17:42] VITALS: BP 128/78; PULSE 115; RESP 16; TEMP 37.8; O2SAT 97
== END 2024-11-12 17:42 | disposition home or self-care (01) ==
PROVIDERS: Physician Assistant Medical; Emergency Provider Emergency Medicine; PCP Internal Medicine
DX: U07.1 COVID-19 (principal); K52.9 Noninfective gastroenteritis and colitis, unspecified; R06.02 Shortness of breath
CPT/HCPCS: 71046; 80053; 83735; 85025; 87637; 99283

== ENCOUNTER → 2024-11-12 14:46 | Outpatient (BNV) | payer OTHER, SELFPAY | PROVIDERS: PCP Internal Medicine; Visit Provider Radiology Diagnostic Radiology | DX: R06.02 Shortness of breath (principal) | CPT/HCPCS: 71046 ==